=== PATIENT | female | born 1995 | race Caucasian/White ===

== ENCOUNTER 2019-03-30 15:21 | Emergency (ER) | payer OTHER, SELFPAY ==
[2019-03-30 15:23] VITALS: BP 123/89; PULSE 97; RESP 16; TEMP 36.8; O2SAT 98; BMI 22.4
--- NOTE | 2019-03-30 15:51 | ED.VISSUMM ---
- ER Visit Summary Date of Service: 03/30/19 Chief Complaint: Depressed and suicidal History of Present Illness: The patient is a 24 F 3 of depression and anxiety. Patient currently is not seeing any counselors or psychiatrists and is not currently on medication for it. States that for the last several weeks she is been more more depressed. Thinks she just is not as good as it is around her. She feels inferior. Today got to the point that she tried to choke herself with her paul chain. No prior history. She says is a small child she is to hit her head against the wall hoping to split her head open. She states she is never been institutionalized. She was a foster child and has been adopted. 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 She was found today by 1 of those girls after the fact. Physical Examination: Young female vital signs are stable afebrile. He is awake and alert. I do not smell any alcohol. No signs of toxidrome. She is very tearful and emotional. She is cooperative. HEENT exam unremarkable. Neck there is some superficial abrasions to her neck. Trachea is midline. No subcu air. No significant tenderness. Lungs clear to auscultation. Heart regular rhythm no murmur. Chest were nontender. Abdomen soft nontender. Patient is moving all 4 extremities. There are no lacerations or signs of trauma. No track jiménez. Neurologically she is awake and alert with no focal motor deficits. Skin is unremarkable. As is her back. Test Results: CBC shows white count 6. Hemoglobin 11. Chemistries normal normal creatinine gap. Serum test negative. Alcohol level normal. And tox screen pending. Emergency Department Course and Treatment: ED mental health evaluation. warehouse worker is already talking to the patient and will speak to her mother also. Her adopted mother is present in the emergency department. Treatment Plan: Patient became very anxious and tearful in the emergency department. She had to be treated with [place]. software engineer web services spoke to her adopted mother and she is very concerned about her and would like to see her admitted to psychiatric facility. Disposition: [place] to psychiatric facility Impression: Acute on chronic anxiety and depression Suicide attempt This note was generated with [email or web address] dictation software. It may contain incorrect words, spelling, and punctuation that were not noted in review of the chart prior to signing ED Disposition - Plan for ED Patient: Referrals: Santo Thomas MD [Primary Care Provider] -
[2019-03-30 16:11] LABS: Absolute Lymphocyte Count 1.53 X10^3/uL (0.83-4.51); Basophil# 0.03 X10^3/uL; Basophil% 0.5 % (0-1); Eosinophil# 0.07 X10^3/uL; Eosinophils% 1.2 % (0-5); Hematocrit 34.2 % (37-47); Lymphocyte # 1.53 X10^3/ul (4.0); Lymphocyte % 25.6 % (19-41); Mean Corp Hgb Conc 32.2 g/dL (32-36); Mean Corpuscular Hgb 26.8 pg (27.0-32.0); Mean Corpuscular Volume 83.4 fL (81-99); Mean Platelet Vol. 10.9 fl (6.2-12.0); Monocyte# 0.37 X10^3/uL; Monocyte% 6.2 % (0-10); NRBC Flagged by Analyzer 0 % (0-5); Neutrophil # 3.97 X10^3/uL (2.7-7.7); Neutrophil % 66.3 % (47-70); Platelet Count 180 K/mm3 (150-450); RBC Distribution Width CV 13.1 % (11.6-14.6); RBC Distribution Width SD 39.4 fl (35.1-43.9)
[2019-03-30 16:16] LABS: Internal QC Validated? YES +Cl - CLEAR BKGD; Pregnancy, Serum, hCG Quali. NEGATIVE Negative
[2019-03-30 16:22] VITALS: RESP 28
[2019-03-30 16:25] LABS: BUN 19 mg/dL (7-18); Creatinine, Serum 0.89 mg/dL (0.55-1.02); Estimated Creatinine Clearance 89.22 ml/min; Glucose 82 mg/dL (74-106)
[2019-03-30 16:26] LABS: Anion Gap 9 (5-15); BUN/Creat Ratio 21.4 RATIO (10-20); Calcium,Total 8.7 mg/dL (8.5-10.1); Chloride 107 mmol/L (98-107); EST Glomerular Filtration Rate 85 mL/min (>60); Est Glom Filt Rate - Afr Amer 102 mL/min (>60); Potassium 3.6 mmol/L (3.5-5.1); Sodium Level 142 mmol/L (136-145)
[2019-03-30 16:27] LABS: Alcohol, Blood (Medical)-Serum < 3.0 mg/dL
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
[2019-03-30] MEDS: Ziprasidone IM 20 MG/ML VIAL IM (16:42)
--- NOTE | 2019-03-30 16:58 | CM.ED ---
SOCIAL WORK CALL TO [facility]. INFORMED NO BEDS AVAILABLE THIS DAY. CALL TO [facility]. SEAM STAYER REPORTS DOES HAVE BED. WILL REVIEW REFERRAL AND GET BACK TO THIS WORKER. REFERRAL FAXED. MARY BAILON, CRIMINAL JUSTICE INSTRUCTOR, AIRCRAFT INSPECTOR.
[2019-03-30 17:49] VITALS: RESP 14
[2019-03-30 17:51] LABS: Amphetamine Urine VISTA NEGATIVE (<1000 ng/mL); Barbiturate Urine VISTA NEGATIVE (< 200 ng/mL); Benzodiazepine Urine VISTA NEGATIVE (< 200 ng/mL); Cocaine Urine VISTA NEGATIVE (< 300 ng/mL); Ecstacy Urine VISTA NEGATIVE (< 500 ng/mL); Methadone Urine VISTA NEGATIVE (< 300 ng/mL); PCP Urine VISTA NEGATIVE (< 25 ng/mL); THC Urine VISTA POSITIVE (< 50 ng/mL); Vista UDS pH Range 6
--- NOTE | 2019-03-30 18:25 | CM.ED ---
Addendum entered by Argenis Bailon 03/30/19 18:36: PATIENT UPDATED ON ACCEPTANCE. MOTHER PRESENT IN ROOM. Original Note: SOCIAL WORK RECEIVED CALL FROM JAMESON WITH [facility]. PATIENT ACCEPTED. ACCEPTING PHYSICIAN: DR. BAL. PATIENT WILL GO TO THE [address] UNIT. NURSE TO CALL REPORT TO [phone]. ARGENIS BAILON, BODY CLEANER, REFRIGERATOR TESTER.
[2019-03-30 19:00] VITALS: BP 104/65; PULSE 66; RESP 16; O2SAT 100
[2019-03-30 19:12] VITALS: BP 104/65; PULSE 66; RESP 16; TEMP 36.8; O2SAT 100
== END 2019-03-30 19:47 ==
PROVIDERS: Emergency Provider Emergency Medicine; Family Provider Family Medicine; PCP Family Medicine
DX: F32.9 Major depressive disorder, single episode, unspecified (principal); F41.9 Anxiety disorder, unspecified; T14.91XA Suicide attempt, initial encounter; X83.8XXA Intentional self-harm by other specified means, initial encounter; Y93.89 Activity, other specified
CPT/HCPCS: 80048; 80307; 80320; 84703; 85025; 96372; 99284; G0480; J3486

== ENCOUNTER 2020-03-02 13:03 | Emergency (ER) | payer OTHER, SELFPAY ==
[2020-03-02 13:04] VITALS: BP 121/53; PULSE 93; RESP 16; TEMP 36.6; O2SAT 98; BMI 21.6
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
[2020-03-02] MEDS: Acetaminophen 500 MG Tablet 1000 MG PO (13:29)
[2020-03-02] MEDS: Ondansetron ODT 4 MG Tablet PO (13:29)
== END 2020-03-02 13:49 | disposition home or self-care (01) ==
PROVIDERS: Emergency Provider Emergency Medicine; PCP Family Medicine
DX: S06.0X9A Concussion with loss of consciousness of unspecified duration, initial encounter (principal); Y04.2XXA Assault by strike against or bumped into by another person, initial encounter
CPT/HCPCS: 99283

== ENCOUNTER 2020-08-17 20:19 | Emergency (ER) | payer OTHER, SELFPAY ==
[2020-08-17 20:20] VITALS: BP 115/71; PULSE 117; RESP 18; TEMP 36.1; O2SAT 98; BMI 23.3
--- NOTE | 2020-08-17 20:41 | CT_ITS ---
STUDY: CT ABDOMEN AND PELVIS WITHOUT CONTRAST REASON FOR EXAM: Female, 25 years old. Left lower abdomen pain, nausea/vomiting. No prior surgery. RADIATION DOSAGE (If Supplied By Facility): CTDIvol = ( 6.24 ) mGy, DLP = ( 316.36 ) mGycm TECHNIQUE: Transaxial images were obtained from the dome of the diaphragm to the symphysis pubis without oral contrast, and without intravenous contrast. Sagittal and coronal images were reconstructed. Individualized dose optimization techniques were used for this CT. COMPARISON: None. FINDINGS: The visualized lung bases are unremarkable. The visualized portions of the heart are within normal limits. Normal liver. Normal gallbladder and extrahepatic biliary system. Normal spleen. Normal pancreas. Normal bilateral adrenal glands. Normal right kidney. Normal left kidney. No definite renal or ureteral stones are seen. There is no hydronephrosis on either side. Evaluation of the GI tract is limited by absence of oral contrast. Cannot exclude stomach wall thickening. No dilated loops of bowel or evidence for obstruction. Cannot exclude segmental thickening of the styles of the small or large bowel. Cannot exclude enteritis or colitis. Moderate diffuse fecal retention. Appendix within normal limits. Normal abdominal aorta. Normal inferior vena cava. Normal retroperitoneum. Normal urinary bladder. Normal visualized uterus. Normal abdominal wall. Normal osseous structures. CT/Abdomen/Pelvis without Cont IMPRESSION: No definite acute or significant abnormality seen. Electronically Signed: Talib Yanes MD at 23:06 EST , Service support ,
[2020-08-17] MEDS: Ondansetron 4 MG/2 ML Vial IV (21:04)
[2020-08-17] MEDS: Morphine 4 MG/ML Syringe IV (21:04)
[2020-08-17] MEDS: 0.9% Normal Saline 1,000 ML 1000 ML IV (21:04)
[2020-08-17 21:22] LABS: Color, Urine Yellow (Yellow); Glucose, Dipstick Normal (Normal); Leukocyte Esterase-Dipstick 500 /ul (Negative); Nitrite-Dipstick Negative (Negative); Occult Blood-Urine Negative /ul (Negative); Protein-Dipstick Negative (Negative); Urine Bilirubin Dipstick Negative (Negative); Urine Clarity Cloudy (Clear); Urine Urobilinogen Normal (Normal)
[2020-08-17 21:34] LABS: Bacteria 2+ /hpf (None Seen); Mucous, Urine 1+ /hpf (<or=2+); Red Blood Cells-Urine 0-5 SEEN /hpf (0-5); Squamous Epithelial Cells - UA 5-10 SEEN /hpf (5-10)
[2020-08-17 21:38] LABS: White Blood Cells 10-25 SEEN /hpf (0-5)
[2020-08-17 21:48] LABS: Ketone-Dipstick 150 mg/dl (Negative)
[2020-08-17 22:02] LABS: Absolute Lymphocyte Count 0.24 X10^3/uL (0.83-4.51); Absolute Neutrophil Count 8.1 X10^3/uL (2.0-7.7); Basophil# 0.01 X10^3/uL; Basophil% 0.1 % (0-1); Eosinophil# 0.03 X10^3/uL; Eosinophils% 0.3 % (0-5); Hematocrit 35.5 % (37-47); Hemoglobin 11.6 g/dL (12.0-15.0); Lymphocyte # 0.24 X10^3/ul (4.0); Lymphocyte % 2.7 % (19-41); Mean Corp Hgb Conc 32.7 g/dL (32-36); Mean Corpuscular Hgb 26.6 pg (27.0-32.0); Mean Corpuscular Volume 81.4 fL (81-99); Mean Platelet Vol. 10.8 fl (6.2-12.0); Monocyte# 0.35 X10^3/uL; NRBC Flagged by Analyzer 0 % (0-5); Neutrophil # 8.08 X10^3/uL (2.7-7.7); Neutrophil % 92.7 % (47-70); POSITIVE DIFFERENTIAL YES; Platelet Count 167 K/mm3 (150-450); RBC Distribution Width SD 41.4 fl (35.1-43.9); Red Blood Count 4.36 M/mm3 (4.2-5.4); White Blood Count 8.7 K/mm3 (4.4-11.0)
[2020-08-17] MEDS: Ceftriaxone 1 GM/50 ML BAG IV (22:04)
[2020-08-17 22:30] LABS: ALB/GLOB Ratio 1.3 RATIO (0.9-2.4); AST(SGOT) 13 U/L (15-37); Alanine Aminotransfer ALT/SGPT 18 U/L (13-56); Albumin, Serum 3.7 g/dL (3.2-5.0); Alkaline Phosphatase 52 U/L (45-117); Anion Gap 7 (5-15); BUN 20 mg/dL (7-18); BUN/Creat Ratio 27.7 RATIO (10-20); Calcium,Total 7.6 mg/dL (8.5-10.1); Chloride 108 mmol/L (98-107); Creatinine, Serum 0.72 mg/dL (0.55-1.02); EST Glomerular Filtration Rate 106 mL/min (>60); Est Glom Filt Rate - Afr Amer 128 mL/min (>60); Estimated Creatinine Clearance 109.35 ml/min; Globulin 2.9 g/dL (2.2-4.2); Glucose 82 mg/dL (74-106); Lipase 104 U/L (73-393); Potassium 3.8 mmol/L (3.5-5.1); Protein, Total 6.6 g/dL (6.4-8.2); Sodium Level 137 mmol/L (136-145)
[2020-08-17 22:31] LABS: Differential Indicated SCAN CRITERIA MET
[2020-08-17 22:34] LABS: Internal QC Validated? YES +Cl - CLEAR BKGD; Pregnancy, Serum, hCG Quali. NEGATIVE Negative
[2020-08-17 22:40] LABS: Platelet Estimate ADEQUATE (ADEQ); Red Cell Morphology NORM C+C NORMAL (NORM C&C)
--- NOTE | 2020-08-17 23:27 | ED.VISSUMM ---
- ER Visit Summary Date of Service: 08/17/20 Chief Complaint: Abdominal pain History of Present Illness: The patient is a [address] Green. She reports she has left-sided abdominal pain that began today. It came on suddenly. Says sharp pain is 7 out of 10 in severity currently and at worst. Is worsened by laying down and relieved by the position. Reports she has been nauseated and vomited 7 times. No blood in her emesis. No diarrhea. Her last bowel was yesterday. Typically she goes twice a day. No blood in her stools or black tarry stools. Patient denies any dysuria or frequency. She does report that she has had a heavy vaginal discharge for approximately 1 week. She states that she did have unprotected intercourse and may be . She is a who sees Dr. Liz Her. Physical Examination: Vitals: Stable. Afebrile. General: Well-nourished and well-developed. Head: Normocephalic atraumatic. Neck: Supple, no lymphadenopathy. No JVD. Nontender. Cardiovascular: Regular rate and rhythm. No murmurs. Respiratory: No respiratory distress. Clear to auscultation bilaterally. Abdominal: Soft, mild tenderness palpation of the left upper quadrant and moderate tenderness outpatient in the left lower quadrant, nondistended, normal bowel sounds. No guarding, rebound, or peritoneal signs. Back: Nontender. Extremities: Nontender, no edema. Skin: Normal color, no rash. Neurologic: Alert and oriented ?3. Cranial nerves II through XII are intact. Normal strength and sensation. Psych: Normal affect. Test Results: CBC shows a hemoglobin of 11.6, hematocrit of 35.5, 7 neutrophils 93, lymphocytes 3. Chem-7 is more for chloride of 108, BUN of 20, calcium 7.6. LFTs are marked for an AST of 13. Lipase is normal. UA shows 10-25 white blood cells, but 5-10 epithelial cells. There is 2+ bacteria. test is negative. Urine for gonorrhea and chlamydia is pending. Clinical Impression(s) from Imaging Studies Abdomen/Pelvis CT 08/17/20 20:41 IMPRESSION: No definite acute or significant abnormality seen. Electronically Signed: Talib Yanes MD at 23:06 EST , Service support , Emergency Department Course and Treatment: Patient was given a liter bolus of normal saline. She was given Rocephin, morphine, and Zofran IV. Her urine was sent for culture. Due to the risk of STD exposure patient was also given Zithromax p.o. Treatment Plan: Patient will be discharged instructions to follow-up with her primary care physician in 1 to 2 days if not improving. She is instructed to follow-up with her film developing machine operator within the next week for another exam. She will be discharged with Zofran and Keflex for her urine. Instructed use Tylenol and/or ibuprofen for pain otherwise. Return to the emergency department for any worsening symptoms. Disposition: To home in improved and stable condition. Impression: 1. Abdominal pain, uncertain cause. This note was generated with [employer] dictation software. It may contain incorrect words, spelling, and punctuation that were not noted in review of the chart prior to signing ED Disposition - Plan for ED Patient: Instructions: ED Abdominal Pain Unkn Cause Fem Prescriptions: Cephalexin [Keflex] 500 mg PO Q12 #14 cap Prescription Printed Ondansetron [Zofran Odt] 4 mg PO Q8H PRN PRN #10 tab PRN Reason: Nausea Prescription Printed Referrals: Santo Thomas MD [Primary Care Provider] - 1-2 Days if not improving Josefina Delarosa MD [STAFF PHYSICIAN] - 1 Week
[2020-08-17] MEDS: Azithromycin 250 MG Tablet 1000 MG PO (23:43)
[2020-08-17 23:45] VITALS: BP 93/59; PULSE 111; RESP 18; O2SAT 100
[2020-08-18 01:54] LABS: Chlamydia Trachomatis by PCR Negative (Negative); Neisserai gonorrhoeae by PCR Negative (Negative); Probe Check PASS; Sample Adequacy Control PASS; Specimen Processing Control PASS
== END 2020-08-17 23:46 | disposition home or self-care (01) ==
PROVIDERS: Emergency Provider Emergency Medicine; PCP Family Medicine
DX: R10.9 Unspecified abdominal pain (principal)
CPT/HCPCS: 74176; 80053; 81001; 83690; 84703; 85025; 87086; 87088; 87491; 87591; 96365; 96375; 99284; J7030; A4216; J2405

== ENCOUNTER 2021-01-09 09:32 | Emergency (ER) | payer OTHER, SELFPAY ==
[2021-01-09 09:33] VITALS: BP 105/73; PULSE 97; RESP 16; TEMP 36.6; O2SAT 97; BMI 22.6
--- NOTE | 2021-01-09 09:47 | EDS_ITS ---
HPI History of Present Illness Chief Complaint: Nausea/Vomiting Narrative Narrative: [address]-year-old patient Dr. Lloyd Her who is a G0, P0. She reports that she has vomiting and diarrhea that began approximately 6 hours ago. She is vomited 10 times. No blood or emesis. She symptoms of the diarrhea. No blood in her stools or black tarry stools. Reports that she has crampy diffuse abdominal pain that began after vomiting. And 6 out of 10 at worst and 2 out of 10 currently. Is worsened by pushing on it and vomiting. Is relieved by nothing. Patient denies any dysuria or frequency. She reports her last menstrual period was approximately 1 week ago. However, she reports she began spotting again 2 days ago. She denied vaginal discharge. Patient denies sick contacts. Has not been camping out of the country. No possible bad food exposure. Does not drink well water. No recent antibiotic use. PFSH PFSH Home Medications cephalexin 500 mg PO Q12 #14 cap 08/17/20 [Rx Last Taken Unknown] ondansetron 4 mg PO Q8H PRN PRN #10 tab 08/17/20 [Rx Last Taken Unknown] ondansetron 4 mg PO Q8H PRN #10 tab 01/09/21 [Rx Last Taken Unknown] Allergy/AdvReac Type Severity Reaction Status Date / Time fish derived Allergy Swelling Verified 01/09/21 09:36 Social History Smoking Status: Never smoker ROS ROS ED Constitutional Constitutional ED: Denies chills, fever(s) or sweats Eyes Eyes: Denies change in vision ENT ENT ED: Denies sore throat Cardiovascular Cardiovascular: Denies chest pain Respiratory/Chest Respiratory/Chest: Denies cough, dyspnea or dyspnea on exertion Gastrointestinal Gastrointestinal: Reports abdominal pain, diarrhea, nausea and vomiting; Denies melena Genitourinary Genitourinary ED: Denies dysuria or urinary frequency Musculoskeletal Musculoskeletal: Denies myalgias Integumentary Denies rash Neurologic Neurologic: Denies headache(s), paresthesias or weakness EXAM Physical Exam Const Vital Signs: 01/09/21 09:33 01/09/21 09:58 01/09/21 10:58 Temperature 98 F 98 F Temperature Source Temporal Temporal Pulse Rate 97 97 Respiratory Rate 16 16 17 Blood Pressure 105/73 105/73 Blood Pressure Mean 83 83 Pulse Ox 97 97 Oxygen Delivery Method Room Air Room Air Positive well nourished and well developed General Appearance ED: well developed HEENT Reports normocephalic and head/scalp atraumatic Eyes PERRL Neck no lymphadenopathy, supple and no JVD General: Negative for tenderness Resp normal respiratory effort and clear to auscultation bilaterally Cardio regular rate, regular rhythm and no murmurs GI non-distended GI Narrative: To palpation. No localized tenderness. No guarding, rebound, or peritoneal signs. Auscultation: normoactive bowel sounds Palpation: soft and tender Back/Spine Back/Spine Narrative: Nontender. Extremity General Extremety ED: Negative for edema or tenderness General Extremity: Negative for edema Neuro oriented x3, CN's II-XII intact bilaterally and no sensory deficits noted Sensorium / Orientation: alert Motor Exam: strength 5/5 throughout Psych mental status grossly normal Skin no rashes or lesions noted MDM MDM Lab Data Labs: Laboratory Results - last 24 hr 01/09/21 01/09/21 01/09/21 09:53 09:53 09:53 WBC 7.8 RBC 4.84 Hgb 12.6 Hct 39.1 MCV 80.8 L MCH 26.0 L MCHC 32.2 RDW Std Deviation 42.0 RDW Coeff of Dru 14.3 Plt Count 152 MPV 10.7 Immature Gran % (Auto) 0.400 Neut % (Auto) 87.8 H Lymph % (Auto) 4.4 L [place] % (Auto) 4.8 Eos % (Auto) 2.3 Baso % (Auto) 0.3 Absolute Neuts (auto) 6.8 Absolute Lymphs (auto) 0.34 L Nucleated RBC % 0 Sodium 137 Potassium 3.8 Chloride 106 Carbon Dioxide 27.0 Anion Gap 4 L BUN 16 Creatinine 0.86 Estim Creat Clear Calc 95.24 Est GFR (MDRD) Af Amer 105 Est GFR (MDRD) Non-Af 87 BUN/Creatinine Ratio 18.6 Glucose 102 Calcium 8.5 Total Bilirubin 0.70 AST 10 L ALT 15 Alkaline Phosphatase 50 Total Protein 7.1 Albumin 4.0 Globulin 3.1 Albumin/Globulin Ratio 1.3 Serum , Qual NEGATIVE Treatment and Re-Evaluation Comments:: Emergency department course: Patient had an IV placed. She was given a liter normal saline. He was given Zofran as Toradol IV. She had no further vomiting or diarrhea while here. Treatment plan: Patient will be discharged with Zofran. Instructed to follow-up with her primary care physician which is not improving. Return to the emergency department for any worsening symptoms. Disposition: To home in improved and stable condition. This note was generated with [employer] dictation software. It may contain incorrect words, spelling, and punctuation that were not noted in review of the chart prior to signing. Discharge Plan Triage Chief Complaint: Nausea/Vomiting ED Provider: Manjit Fairbanks Dx/Rx/DC Orders Clinical Impression: Vomiting and diarrhea Instructions: ED Vomiting and Diarrhea ... Prescriptions: New ondansetron 4 mg tablet,disintegrating 4 mg PO Q8H PRN (Reason: nausea and vomiting) Qty: 10 RF: 0 No Action cephalexin 500 MG capsule 500 mg PO Q12 Qty: 14 RF: 0 ondansetron 4 MG tablet 4 mg PO Q8H PRN PRN (Reason: Nausea) Qty: 10 RF: 0 Primary Care Provider: Santo Thomas Referrals: Santo Thomas MD [Primary Care Provider] - 1-2 Days if not improving Disposition Disposition: Home, self care Discharge Date/Time: 01/09/21 11:00
[2021-01-09] MEDS: Ketorolac 15 MG/ML Vial IV (09:55)
[2021-01-09] MEDS: 0.9% Normal Saline 1,000 ML 1000 ML IV (09:55)
[2021-01-09] MEDS: Ondansetron 4 MG/2 ML Vial IV (09:55)
[2021-01-09 09:58] VITALS: BP 105/73; PULSE 97; RESP 16; TEMP 36.6; O2SAT 97
[2021-01-09 10:07] LABS: Absolute Lymphocyte Count 0.34 X10^3/uL (0.83-4.51); Absolute Neutrophil Count 6.8 X10^3/uL (2.0-7.7); Basophil# 0.02 X10^3/uL; Basophil% 0.3 % (0-1); Eosinophil# 0.18 X10^3/uL; Eosinophils% 2.3 % (0-5); Hematocrit 39.1 % (37-47); Hemoglobin 12.6 g/dL (12.0-15.0); Lymphocyte # 0.34 X10^3/ul (0.83-4.51); Lymphocyte % 4.4 % (19-41); Mean Corp Hgb Conc 32.2 g/dL (32-36); Mean Corpuscular Volume 80.8 fL (81-99); Mean Platelet Vol. 10.7 fl (6.2-12.0); Monocyte# 0.37 X10^3/uL; Monocyte% 4.8 % (0-10); NRBC Flagged by Analyzer 0 % (0-5); Neutrophil # 6.84 X10^3/uL (2.7-7.7); Neutrophil % 87.8 % (47-70); POSITIVE DIFFERENTIAL YES; Platelet Count 152 K/mm3 (150-450); RBC Distribution Width CV 14.3 % (11.6-14.6); Red Blood Count 4.84 M/mm3 (4.2-5.4); White Blood Count 7.8 K/mm3 (4.4-11.0)
[2021-01-09 10:08] LABS: Differential Indicated SCAN CRITERIA MET
[2021-01-09 10:24] LABS: ALB/GLOB Ratio 1.3 RATIO (0.9-2.4); AST(SGOT) 10 U/L (15-37); Alanine Aminotransfer ALT/SGPT 15 U/L (13-56); Alkaline Phosphatase 50 U/L (45-117); Anion Gap 4 (5-15); BUN 16 mg/dL (7-18); BUN/Creat Ratio 18.6 RATIO (10-20); Calcium,Total 8.5 mg/dL (8.5-10.1); Chloride 106 mmol/L (98-107); Creatinine, Serum 0.86 mg/dL (0.55-1.02); EST Glomerular Filtration Rate 87 mL/min (>60); Est Glom Filt Rate - Afr Amer 105 mL/min (>60); Estimated Creatinine Clearance 95.24 ml/min; Globulin 3.1 g/dL (2.2-4.2); Glucose 102 mg/dL (74-106); Potassium 3.8 mmol/L (3.5-5.1); Protein, Total 7.1 g/dL (6.4-8.2); Sodium Level 137 mmol/L (136-145)
[2021-01-09 10:32] LABS: Internal QC Validated? YES +Cl - CLEAR BKGD; Pregnancy, Serum, hCG Quali. NEGATIVE Negative
[2021-01-09 10:58] VITALS: RESP 17
== END 2021-01-09 11:00 | disposition home or self-care (01) ==
PROVIDERS: Emergency Provider Emergency Medicine; PCP Family Medicine
DX: R11.2 Nausea with vomiting, unspecified (principal); R19.7 Diarrhea, unspecified
CPT/HCPCS: 80053; 84703; 85025; 96374; 96375; 99283; J7030; A4216; J2405

== ENCOUNTER 2021-03-27 23:15 | Emergency (ER) | payer OTHER, SELFPAY ==
[2021-03-27 23:15] VITALS: BP 124/74; PULSE 76; RESP 18; TEMP 36.3; O2SAT 100; BMI 24.2
--- NOTE | 2021-03-27 23:43 | EDS_ITS ---
HPI History of Present Illness Chief Complaint: Nausea/Vomiting Informant: patient Narrative Narrative: Patient presents with nausea and vomiting that started somewhere in the mid of today. She states it started with a headache on the right side. The headache was slow onset. Is not the worst she has ever had. Is not thunderclap. I noticed that she had been here for multiple episodes of vomiting over the years. When I asked her about this she states she gets these episodes about twice a month. They are always preceded by headache. The headache is normally on the right side of her head. She then gets nausea vomiting. Sometimes it goes away within hours if she lays down but occasionally she does come in. She has never seen anyone about these other than the emergency department. She has never been diagnosed with migraines. She is adopted and do es not know if she has a family history of migraines. I then asked her about visual changes. She states that many times she does get some flashing lights or visual scotoma prior to the headache. She had mild versions of that this time. She has no neurologic symptoms. She has no recent trauma. No fevers or chills. Despite nausea and vomiting she has no diarrhea and no abdominal pain or cramp ing. Last menstrual period is normal timing and now. She does not know if the headaches match her menstrual cycle. Nothing consistently makes the symptoms better or worse. She occasionally smokes marijuana but it has been weeks. No other drugs. No cigarettes. No alcohol. PFSH PFSH Home Medications sumatriptan succinate 50 mg PO Q2H PRN #7 tab MDD 2 tablets 03/28/21 [Rx Last Taken Unknown] Allergy/AdvReac Type Severity Reaction Status Date / Time fish derived Allergy Swelling Verified 03/27/21 23:17 Social History Smoking Status: Never smoker ROS ROS ED Constitutional Constitutional ED: Denies fever(s) or sweats Eyes Eyes: Reports other Details: Had mild visual scotoma prior to the headache. None now. ; Denies blurry vision, change in vision or diplopia ENT ENT ED: Denies rhinorrhea Cardiovascular Cardiovascular: Denies chest pain or palpitations Respiratory/Chest Respiratory/Chest: Denies cough, dyspnea or sputum Gastrointestinal Gastrointestinal: Reports nausea and vomiting; Denies abdominal pain, constipation or diarrhea Genitourinary Genitourinary ED: Reports other Details: Last menstrual period is now in normal timing. ; Denies dysuria or hematuria Musculoskeletal Musculoskeletal: Denies neck pain Integumentary Denies rash Neurologic Neurologic: Reports headache(s); Denies paresthesias or weakness Psychiatric Psychiatric: Denies anxiety or depression Endocrine Endocrinology: Denies polydipsia or polyuria Allergic/Immunologic Allergic/Immunologic ED: Denies mouth swelling or urticaria EXAM Physical Exam Const Vital Signs: 03/27/21 23:15 Temperature 97.4 F L Temperature Source Temporal Pulse Rate 76 Respiratory Rate 18 Blood Pressure 124/74 H Blood Pressure Mean 90 Pulse Ox 100 Positive well nourished and well developed General Appearance ED: well developed HEENT Reports moist mucous membranes Negative for trauma or tenderness Eyes PERRL and EOMs intact bilaterally Eyes Narrative: Patient really does not have any notable General Eye ED: Negative for pale conjunctiva or scleral icterus Neck no lymphadenopathy, supple and no JVD Resp normal respiratory effort and clear to auscultation bilaterally Auscultation: Negative for wheezes Cardio regular rate and regular rhythm GI normal to inspection, nondistended, normoactive bowel sounds, non-tender and non-distended Palpation: soft Back/Spine no CVA tenderness Extremity General Extremety ED: Negative for edema or tenderness General Extremity: Negative for edema Neuro oriented x3 Sensorium / Orientation: alert Psych mental status grossly normal Skin no rashes or lesions noted MDM MDM MDM Narrative Medical decision making narrative: Patient is rechecked. She looks comfortable. She has no photophobia. No nausea. No further vomiting. Headaches gone. She feels much better. I will write her for a few sumatriptan. We explained that she should take this with initial onset of visual scotoma or headache. She will follow up with her private physician. We discussed returning with worsening symptoms fevers, neurologic symptoms or other concerns. Discharge Plan Triage Chief Complaint: Nausea/Vomiting ED Provider: Jaime Self Dx/Rx/DC Orders Clinical Impression: Migraine, Nausea & vomiting Instructions: ED, Migraine (Classical) Prescriptions: New sumatriptan succinate 50 mg tablet 50 mg PO Q2H MDD 2 tablets PRN (Reason: migraine headache) Qty: 7 RF: 0 Primary Care Provider: Santo Thomas Referrals: Santo Thomas MD [Primary Care Provider] - As soon as possible Disposition Disposition: Home, Self Care
[2021-03-28] MEDS: 0.9% Normal Saline 1,000 ML 999 ML IV (00:05)
[2021-03-28] MEDS: proCHLORPERazine 10 MG/2 ML Vial IV (00:05)
[2021-03-28] MEDS: DiphenhydrAMINE 50 MG/ML Syringe IV (00:07)
== END 2021-03-28 01:32 | disposition home or self-care (01) ==
LOC: ED 03-28 01:26
PROVIDERS: Emergency Provider Emergency Medicine; PCP Family Medicine
DX: G43.909 Migraine, unspecified, not intractable, without status migrainosus (principal); R11.2 Nausea with vomiting, unspecified
CPT/HCPCS: 96374; 96375; 99283; J7030; A4216

== ENCOUNTER → 2021-12-24 | Outpatient (CLI) | payer OTHER, SELFPAY ==
[2021-12-30 16:40] LABS: HPV Reflexed? NOT INDICATED
== END | disposition home or self-care (01) ==
LOC: LABSPEC 15:20
PROVIDERS: PCP Family Medicine; Referring Provider Registered Nurse; Visit Provider Registered Nurse
DX: Z12.4 Encounter for screening for malignant neoplasm of cervix (principal)
CPT/HCPCS: 87491; 87591; 88175; G0145

== ENCOUNTER → 2022-02-27 | Outpatient (CLI) | payer OTHER, SELFPAY | END | disposition home or self-care (01) | LOC: LABSPEC 15:04 | PROVIDERS: PCP Family Medicine; Visit Provider Obstetrics & Gynecology | DX: R30.0 Dysuria (principal) | CPT/HCPCS: 87077; 87086; 87088 ==

== ENCOUNTER → 2022-05-21 | Outpatient (CLI) | payer OTHER, SELFPAY | END | disposition home or self-care (01) | PROVIDERS: PCP Family Medicine; Visit Provider Family Medicine | DX: R30.0 Dysuria (principal) | CPT/HCPCS: 87086; 87088 ==

== ENCOUNTER → 2022-05-22 | Outpatient (CLI) | payer OTHER, SELFPAY ==
[2022-05-22 17:30] LABS: hCG Titer Quant., Serum < 1 mIU/mL (1-3)
== END | disposition home or self-care (01) ==
LOC: WOBLAB 10:57
PROVIDERS: PCP Family Medicine; Visit Provider Obstetrics & Gynecology
DX: N91.2 Amenorrhea, unspecified (principal)
CPT/HCPCS: 36415; 84702

== ENCOUNTER 2023-03-18 23:27 | Emergency (ER) | payer MEDICAID, SELFPAY ==
[2023-03-18 23:29] VITALS: BP 103/77; PULSE 115; RESP 15; TEMP 36.3; O2SAT 95; BMI 29.0
--- NOTE | 2023-03-19 00:05 | EDS_ITS ---
HPI HPI - Female History of Present Illness Chief Complaint: Female C/O Informant: patient Narrative Narrative: 1 to 2 weeks of vaginal pain and bleeding off-and-on. Saw her PATIENT INTAKE REPRESENTATIVE, prescribed doxycycline which she has been on, saying the symptoms are still there and presenting for reevaluation basically because she is still bleeding and occasionally seeing some tissue that does not make any sense and she is concerned. She is sexually active with her boyfriend, she has no STD history that she knows of, but states her RAPID TRANSIT OPERATOR swabbed her and sent. She states her boyfriend did admit he did not have intercourse but had other sexual contact with another relationship and was potentially exposed to herpes simplex but she has noticed no rashes. [facility] Medical History (Updated 03/19/23 @ 01:[address] Puma Berumen MD) Migraine Home Medications sumatriptan succinate 50 mg tablet 50 mg PO Q2H PRN migraine headache #7 tabs 03/28/21 [Rx Last Taken Unknown] Allergy/AdvReac Type Severity Reaction Status Date / Time fish derived Allergy Swelling Verified 03/18/23 23:35 Surgical History H/O wisdom tooth extraction Social History household members: family Smoking Status: Light Smoker (<10/day) ROS ROS ED Constitutional Constitutional ED: Denies chills or fever(s) Gastrointestinal Gastrointestinal: Reports abdominal pain; Denies nausea or vomiting Genitourinary Genitourinary ED: Reports as per HPI; Denies dysuria, hematuria or urinary frequency Integumentary Denies abscess or rash EXAM Physical Exam Const Vital Signs: 03/18/23 23:29 Temperature 97.3 F L Temperature Source Temporal Pulse Rate 115 H Respiratory Rate 15 Blood Pressure 103/77 Blood Pressure Mean 85 Pulse Ox 95 Oxygen Delivery Method Room Air Positive well nourished and well developed General Appearance ED: well developed and NAD Eyes PERRL and EOMs intact bilaterally Neck supple Resp normal respiratory effort Effort and Inspection: able to speak in complete sentences GI normal to inspection, nondistended, normoactive bowel sounds and soft to palpation GI Narrative: Very mild suprapubic tenderness only no guarding or rebound. Narrative: External genitalia normal. On speculum exam, some mild tenderness in the vaginal canal with exam but not severe. Cervix is normal-appearing. There is a brown homogenous discharge in the canal and by the cervix, the cervix looks no rmal does not appear to be friable there is no blood or bleeding or any obvious source of bleeding, there does appear to be a drop of discharge at the os. Extremity normal to inspection and full ROM Neuro oriented x3, CN's II-XII intact bilaterally, no sensory deficits noted and gait normal Motor Exam: strength 5/5 throughout Psych mental status grossly normal Skin no rashes or lesions noted MDM MDM MDM Narrative Medical decision making narrative: Very well-appearing female, with vaginal discharge, PID is in the differential diagnosis, as it is bacterial vaginosis, gonorrhea, chlamydia cervicitis although that she does not appear to have cervicitis now. Since she was just at the RAPID TRANSIT OPERATOR, I deferred bimanual exam since she is well-appearing and I am out of low suspicion for tubo-ovarian abscess and she is really not having a whole lot of abdominal pain, and discussed with Dr. Keny Burk who was on-call for [place]. He is aware of this patient, states that they were planning on covering her for PID in the office with the Doxy she is currently on as well as a dose of IM Rocephin but they were unable to get it, so they sent testing. The patient showed me the results of her outpatient testing. Negative for gonorrhea and chlamydia, she has a score of 0 on her bacterial vaginosis KATERIN, Dr. Burk confirms that this is very sensitive for ruling that out. She was negative for trichomoniasis. He suggest given her the dose of Rocephin here, she will be given 500 mg IM and then discharged home. She will follow-up closely as an outpatient. No reason to admit her at this time. She is comfortable with that plan. Discharge Plan Triage Chief Complaint: Female C/O ED Provider: Puma Berumen Dx/Rx/DC Orders Clinical Impression: Bloody vaginal discharge, Pelvic pain in female Instructions: ED Pelvic Inflammatory Disease Prescriptions: No Action sumatriptan succinate 50 mg tablet 50 mg PO Q2H MDD 2 tablets PRN (Reason: migraine headache) Qty: 7 0RF Rx Instructions: do not exceed 4 doses per 24 hrs Primary Care Provider: Santo Thomas Referrals: Prachi Burk DO [Med Staff - Active Staff] - As soon as possible Santo Thomas MD [Primary Care Provider] - Disposition Disposition: Home, Self Care
[2023-03-19] MEDS: Ceftriaxone 500 MG Vial IM (01:26)
== END 2023-03-19 01:59 | disposition home or self-care (01) ==
PROVIDERS: Emergency Provider Emergency Medicine; PCP Family Medicine; Visit Provider Emergency Medicine
DX: N93.9 Abnormal uterine and vaginal bleeding, unspecified (principal); F17.200 Nicotine dependence, unspecified, uncomplicated; R10.2 Pelvic and perineal pain; G43.909 Migraine, unspecified, not intractable, without status migrainosus
CPT/HCPCS: 96372; 99282

== ENCOUNTER 2023-06-11 22:12 | Emergency (ER) | payer MEDICAID, SELFPAY ==
[2023-06-11 22:13] VITALS: BP 131/89; PULSE 113; RESP 16; TEMP 36.2; O2SAT 98; BMI 28.8
--- NOTE | 2023-06-11 22:27 | CT_ITS ---
EXAM: CT HEAD WITHOUT INTRAVENOUS CONTRAST CLINICAL INDICATION: headache TECHNIQUE: Multiple axial images were obtained of the head without intravenous contrast. This CT exam was performed using one or more of the following dose reduction techniques: automated exposure control, adjustment of the mA and/or kV according to patient size, and/or use of iterative reconstruction technique. RADIATION DOSE: CTDIvol = 44.99 mGy, DLP = 762.36 mGy-cm COMPARISON: No relevant prior studies available. FINDINGS: BRAIN AND EXTRA-AXIAL SPACES: Unremarkable. No intra- or extra-axial hemorrhage. No evidence of acute infarct. No intracranial mass or mass effect. There is preservation of the shea/white matter interface. Posterior fossa structures are unremarkable. Ventricles are appropriate for age. No hydrocephalus. Basal cisterns are patent. BONES/JOINTS: Unremarkable. No discrete lytic or blastic abnormalities. SINUSES: Unremarkable as visualized. Clear. MASTOID AIR CELLS: Unremarkable. Clear. ORBITS: Visualized globes, extraocular muscles, optic nerves and retrobulbar fat appear unremarkable. CT/Brain/Head without Contrast IMPRESSION: Negative head/brain CT without intravenous contrast. Electronically Signed: Fercho Montalvo MD at 23:19 EDT ,
--- NOTE | 2023-06-11 22:32 | EX.ED.DYSGE1 ---
HPI History of Present Illness Chief Complaint: Anxiety Informant: patient Narrative Narrative: Patient presents with anxiety and headache. She states that she is in a bad relationship and has had a lot of problems with anxiety. She does not want to take any anxiety medication but she is currently in counseling. She states she presents tonight because of a headache. She states that she was told about 5 years ago that she had a CT scan that showed a small teardrop shaped intracranial bleed. She states this CT scan was obtained while she was being evaluated for psychiatric disorder. She states it was just observed and no surgery was required. She states she was told it occurred because she was under a lot of emotional stress and with her increased anxiety and now headache she is concerned. She states that she went to a walk-in clinic at the [facility] just a couple days ago and his CT head was performed that showed some inflammation. I looked in [facility] but cannot find any records of this visit. PFSH PFS Medical History Migraine Home Medications sumatriptan succinate 50 mg tablet 50 mg PO Q2H PRN migraine headache #7 tabs 03/28/21 [Rx Last Taken Unknown] Allergy/AdvReac Type Severity Reaction Status Date / Time fish derived Allergy Swelling Verified 03/18/23 23:35 Surgical History H/O wisdom tooth extraction Social History household members: family Smoking Status: Light Smoker (<10/day) ROS [facility] ED Constitutional Constitutional ED: Denies chills or fever(s) Eyes Eyes: Denies discharge from eye(s) ENT ENT ED: Denies discharge from eye(s), rhinorrhea or sore throat Cardiovascular Cardiovascular: Denies chest pain or palpitations Respiratory/Chest Respiratory/Chest: Denies cough or dyspnea Gastrointestinal Gastrointestinal: Reports nausea and vomiting; Denies abdominal pain or diarrhea Genitourinary Genitourinary ED: Denies dysuria Musculoskeletal Musculoskeletal: Denies back pain or extremity pain Integumentary Denies Abrasions or rash Neurologic Neurologic: Reports headache(s); Denies weakness Psychiatric Psychiatric: Reports anxiety; Denies depression or suicidal ideation Allergic/Immunologic Allergic/Immunologic ED: Denies lip swelling or urticaria EXAM Physical Exam Const Vital Signs: 06/11/23 22:13 Temperature 97.2 F L Temperature Source Temporal Pulse Rate 113 H Respiratory Rate 16 Blood Pressure 131/89 H Blood Pressure Mean 103 Pulse Ox 98 Oxygen Delivery Method Room Air Positive well nourished and well developed General Appearance ED: well developed HEENT Reports moist mucous membranes Eyes EOMs intact bilaterally Neck no lymphadenopathy Neck Narrative: Linear erythematous jiménez across her neck. Patient states these are from necklaces that she wore and she is adamant that she was not trying to hurt herself. Chest Wall inspection of chest normal and palpation of chest normal Resp normal respiratory effort and clear to auscultation bilaterally Cardio regular rate and regular rhythm GI non-tender Auscultation: hypoactive bowel sounds Palpation: soft Extremity normal to inspection Neuro oriented x3 and no sensory deficits noted Sensorium / Orientation: alert Motor Exam: strength 5/5 throughout Psych Mood & Affect: anxious and tearful MDM MDM MDM Narrative Medical decision making narrative: Patient agreed to taking Tylenol and Zofran for headache and nausea. CT scan of the head will be obtained. Radiography Diagnostic Testing: Clinical Impression(s) from Imaging Studies Brain CT 06/11/23 22:27 IMPRESSION: Negative head/brain CT without intravenous contrast. Electronically Signed: Fercho Montalvo MD at 23:19 EDT , Treatment and Re-Evaluation :: On repeat evaluation patient resting comfortably. CT scan reveals no acute abnormalities. Patient is reassured with this. She will follow-up with her counselor. Discharge Plan Triage Chief Complaint: Anxiety ED Provider: Sara Ram Dx/Rx/DC Orders Clinical Impression: Anxiety, Headache Instructions: ED Anxiety Reaction, ED Headache, Tension Prescriptions: No Action sumatriptan succinate 50 mg tablet 50 mg PO Q2H MDD 2 tablets PRN (Reason: migraine headache) Qty: 7 0RF Rx Instructions: do not exceed 4 doses per 24 hrs Primary Care Provider: Care Physician,No Primary Referrals: Santo Thomas MD [Med Staff - Payroll Representative] - 1-2 Weeks Disposition Disposition: Home, Self Care
[2023-06-11] MEDS: Acetaminophen 500 MG Tablet 1000 MG PO (22:34)
[2023-06-11] MEDS: Ondansetron ODT 4 MG Tablet PO (22:35)
== END 2023-06-11 23:35 | disposition home or self-care (01) ==
PROVIDERS: Emergency Provider Emergency Medicine; Visit Provider Emergency Medicine
DX: F41.9 Anxiety disorder, unspecified (principal); R51.9 Headache, unspecified; F17.200 Nicotine dependence, unspecified, uncomplicated
CPT/HCPCS: 70450; 99283

== ENCOUNTER 2023-08-29 03:38 | Emergency (ER) | payer MEDICAID, SELFPAY ==
[2023-08-29 03:39] VITALS: BP 136/80; PULSE 100; RESP 16; TEMP 36.6; O2SAT 98; BMI 33.2
[2023-08-29 03:42] VITALS: BP 136/80; PULSE 100; RESP 18; TEMP 36.6; O2SAT 98
--- OUTSIDE RECORDS SUMMARY | 2023-08-29 03:52 | XMS RPT_ITS | CCD ---
Author Name Unknown Address [address] [place] [address] Organization [facility] Care Team Providers Care Dental Services Director Name Role Phone MAGALIE SHAVER, DR ALICEA Primary Care Physician Required, No Pcp Unavailable Unavailable Cary Ch Unavailable Unavailabl Lamont Moreno Attending Unavailable ROD Ch Attending Anaya levi THOMAS MD, DR ALICEA Primary Care FELECIA Huddleston MD Attending Unavailable Nixon Thomas MD Primary Care Provider NIXON THOMAS Primary Care Unavailabl e GINAJULISSA Attending Unavailable JAVIER MCCAULEY Attending Unavailable NIXON THOMAS Primary Care Unavailabl e GINAJULISSA Attending Unavailable NIXON THOMAS Primary Care UnavailNIXON Reddy Primary Care Unavailrod e DELFIN SMALL Attending Unavailable NIXON THOMAS Primary Care Unavailabl e GINASHEMAREE Referring Unavailable NIXON THOMAS Primary Care Unavailabl NIXON Hankins Primary Care Unavailabl e Allergies Allergy Classification Reported Allergen(s) Allergy Type Date of Onset Reaction(s) Facility (1 source) Fish - dietary Anaphylaxis [facility] (5 sources) Fish; Translations: [FISH CONTAINING PRODUCTS] Drug Allergy 03-09-2023 Angioedema [facility] (5 sources) salmon oil; Translations: [SALMON OIL] Drug Allergy 01-14-2023 Angioedema [facility] Medications Current Medications Medication Drug Class(es) Dates Sig (Normalized) Sig (Original) diphenhydrAMINE hydrochloride 25 mg oral tablet (1 source) Histamine-1 Receptor Antagonist Start: 10-12-2021 Benadryl 25 mg oral tablet Dose : 25 mg = 1 tab(s), Oral, QID, PRN as needed for itching, # 24 tab(s), 0 Refill(s), Allergic reaction Start Date: 10/12/21 Status: Ordered famotidine 20 mg oral tablet (1 source) Histamine-2 Receptor Antagonist Start: 10-12-2021 Pepcid 20 mg oral tablet Dose : 20 mg = 1 tab(s), Oral, qDay, # 10 tab(s), 0 Refill(s), Allergic reaction Start Date: 10/12/21 Status: Ordered ibuprofen 600 mg oral tablet (1 source) Nonsteroidal Anti-inflammatory Drug Start: 03-02-2022 End: 03-06-2022 take 1 tablet by mouth every eight hours ibuprofen 600 mg oral tablet ; 1 tab(s) orally every 8 hours Quantity: 15 Refills: 0 Ordered: 02-Mar-2022 Cary Ch Start: 02-Mar-2022 End: 06-Mar-2022 Generic Substitution Allowed Comments: Do not take this drug if you are .It is very important that you take or use this exactly as directed. Do not skip doses or discontinue unless directed by your doctor.May cause drowsiness or dizziness.Obtain medical advice before taking any non-prescription drugs as some may affect the action of this medication.Take with food or milk. Completed/Discontinued Medications Medication Drug Class(es) Dates Sig (Normalized) Sig (Original) 1 ml medroxyPROGESTERone acetate 150 mg/ml injection (6 sources) Progestin Start: 3 End: 4 medroxyPROGESTERone 150 mg injection (DEPO-PROVERA) Problems Active Problems Problem Classification Problem Date Documented Date Episodic/Chronic Allergic reactions (1 source) Allergic disposition; Translations: [Allergy, unspecified, initial encounter] Onset: 10-12-2021 Episodic Anxiety disorders (2 sources) Anxiety disorder, unspecified; Translations: [Anxiety disorder, unspecified] Onset: 06-22-2022 Chronic Contraceptive and procreative management (2 sources) Patient encounter status; Translations: [Encounter for surveillance of injectable contraceptive] 06-12-2023 Episodic Headache; including migraine (2 sources) Headache; including migraine; Translations: [Headache, unspecified] Onset: 06-22-2022 Immunizations and screening for infectious disease (2 sources) Encounter for screening for infections with a predominantly sexual mode of transmission; Translations: [Encounter for screening for human papillomavirus (HPV)] Onset: 07-27-2023 Episodic Other circulatory disease (1 source) Personal history of other diseases of the circulatory system; Translations: [Personal history of other diseases of the circulatory system] Onset: 06-22-2022 Episodic Other screening for suspected conditions (not mental disorders or infectious disease) (1 source) Encounter for screening for malignant neoplasm of cervix; Translations: [Screening for cervical cancer] Onset: 07-27-2023 Episodic Past or Other Problems Problem Classification Problem Date Documented Da te Episodic/Chronic Abdominal pain (6 sources) Flank pain; Translations: [Abdominal pain, other specified site] Onset: 03-02-2022 03-02-2022 Episodic Results Test Name Value Interpretation Reference Range Facil ity Vital Signs Date Time Vital Sign Value Performing Clinician Facility 06-12-2023 15:22-0400 Body weight 89.36 kg Nurse Wstr Work Phone: [facility] 06-12-2023 15:22-0400 Diastolic blood pressure 70 mm[Hg] Nurse Wstr Work Phone: [facility] 06-12-2023 15:22-0400 Systolic blood pressure 104 mm[Hg] Nurse Wstr Work Phone: [facility] 03-02-2022 22:40-0400 Body temperature 97.88 [degF] No Pcp Required [facility] 03-02-2022 22:40-0400 Diastolic blood pressure 56 mm[Hg] No Pcp Required [facility] 03-02-2022 22:40-0400 Heart rate 78 /min No Pcp Required [facility] 03-02-2022 22:40-0400 Respiratory rate 20 /min No Pcp Required [facility] 03-02-2022 22:40-0400 SaO2% (BldA) [Mass fraction] 98 % No Pcp Required [facility] 03-02-2022 22:40-0400 Systolic blood pressure 111 mm[Hg] No Pcp Required [facility] 03-02-2022 19:29-0400 Body height 167.6 cm No Pcp Required [facility] 03-02-2022 19:29-0400 Body weight 66 kg No Pcp Required [facility] 10-12-2021 15:13-0500 Body temperature 97.7 [degF] PRISCA JUAREZ [facility] 10-12-2021 15:13-0500 Diastolic blood pressure 81 mm[Hg] PRISCA JUAREZ MD [facility] 10-12-2021 15:13-0500 Heart rate 73 /min PRISCA JUAREZ MD [facility] 10-12-2021 15:13-0500 Respiratory rate 18 /min PRISCA JUAREZ MD [facility] 10-12-2021 15:13-0500 Systolic blood pressure 118 mm[Hg] PRISCA JUAREZ [facility] Encounters Encounter Date Encounter Type Care Provider Facility Start: 08-25-2023 End: 08-25-2023 Emergency department patient visit NIXON GAITANRICHFIELD Facility:[facility] Start: 07-27-2023 End: 07-28-2023 ambulatory [facility] Facility:[facility] Start: 07-27-2023 Encounter for gynecological examination (general) (routine) without abnormal findings JULISSA COLEMAN [facility] Start: 06-12-2023 End: 06-12-2023 Refill Julissa Coleman HAT MARKER.INSTRUCTOR ADJUNCT SURGICAL TECHNICIAN Work Phone: OB/Gynecology Procedures Date Procedure Procedure Detail Performing Clinician Start: 06-12-2023 Urine test visual color cmprsn metherika Davila HAT MARKER.CNM Work Phone: None (qualifier value) PRISCA JUAREZ MD Plan of Treatment Date Care Activity Detail Author Start: 04-17-2023 Influenza vaccination Influenza Vacc ine (#1) [facility] Start: 08-17-2022 Depression Assessment Depression Ass essment [facility] Start: 04-30-2020 Urine microalbumin profile DTaP,Tdap,Td Vaccine (7 - Td or Tdap) [facility] Start: 2018 Pap Testing Pap Testing [facility] Start: 2015 Hepatitis C Screening Hepatitis C Sc reening [facility] Start: 2015 HIV Screening HIV Screening [facility] Start: 2011 Peds To Adult Transi tion Annual Assessment Peds To Adult Transition Annual Assessment [facility] Start: 2009 Peds To Adult Transi tion Initial Discussion Peds To Adult Transition Initial Discussion [facility] Start: 2003 Pneumococcal vaccination Pneum ococcal Vaccine (1 - PCV) [facility] Start: 1997 Covid-19 Vaccine (#1) Covid-19 Vacci ne (#1) [facility] Immunizations Immunization Date Immunization Notes Care Provider Caroline deras 08-01-2010 influenza virus vacc ine, unspecified formulation Delfin Small MD Work Phone: [facility] Payers Date Payer Category Payer Medicaid [employer] [place] [id number] 2022-Present [phone] [address] [place] [address] Medicaid [id number] 2022 Unknown [id number] 2022 Private Health Insurance [id number] 2022 Private Health Insurance [id number] 2022 Private Health Insurance [employer] AETNA POS [id number] 2022-Present [phone] [address] [place] [address] POS [id number] 1997 Unknown [id number] 1997 Unknown [id number] 1963 Unknown [id number] Unknown [employer] Social History Date Type Detail Facility [facility] Sex Assigned At Female [facility] Start: 01-14-2023 Tobacco smokin g consumption unknown [facility] History of tobacco use Passive smoker [facility] Start: 01-14-2023 End: 06-12-2023 Alcohol intake Current drinker of alcohol (finding) [facility] Start: 01-14-2023 End: 01-20-2023 History of Social function [facility] Start: 01-14-2023 End: 01-20-2023 Tobacco use panel [facility] National Score (1-100), lower number is lower risk 68 [facility] Start: 01-14-2023 Alcohol Comment socially consu mes some wine/liquor but denies daily/weekly use [facility] Start: 1997 Sex Assigned At Not on file [facility] Start: 06-12-2023 Tobacco smoking status NHIS Occasional tobacco smoker [facility] History of tobacco use Cigarette Smoker [facility] Start: 06-12-2023 Tobacco use and exposure Smokeless tobacco non-user [facility] Progress note 07-27-2023 Note Date & Type Note Facility 07-27-2023 Note HNO ID: [id number] Author: Julissa Coleman APRN.INSTRUCTOR ADJUNCT SURGICAL TECHNICIAN Service: ? Author Type: Nurse Practitioner Type: Progress Notes Filed: 07/27/2023 3:31 PM Note Text: Hat Marker offered: Patient declinesTai Ferrara is a 28 year old No obstetric history on file. who presents for an annual gynecologic exam with complaints, vaginal dryness and weight gain . Menses: no menses Contraception: Depo Provera HPV vaccine: N/A Last Pap: 2021 normal HPV: N/A History of abnormal pap: No Last mammogram: never Sexually active: Yes History of STDS: None Pain with intercourse: Yes OB History No obstetric history on file. Automation Controls Engineer History LMP: LMP Unknown, Injection Age at Menarche: Age at First : Age at Menopause: Automation Controls Engineer History Comments: Sexual Activity: Yes; Male Contraception: No contraception data on record No past medical history on file.No past surgical history on file.No family history on file.SOCIAL HISTORY Social History Tobacco Use Smoking status: Some Days Types: Cigarettes Passive exposure: Past Smokeless tobacco: Never Vaping Use Vaping Use: current everyday user Substances: Nicotine, Flavoring Devices: Disposable Substance Use Topics Alcohol use: Yes Comment: socially consumes some wine/liquor but denies daily/weekly use Drug use: Yes Frequency: 1.0 times per week Types: Marijuana REVIEW OF SYSTEMS Abdomen: No abdominal pain, nausea, vomiting, diarrhea, or constipation. No bloating, early satiety, indigestion, or increased flatulence. Bladder: No dysuria, gross hematuria, urinary frequency, urinary urgency, or incontinence. Breast: No breast lumps, nipple d/c, overlying skin changes, redness or skin retraction. Allergies and current medication updated:Yes EXAM: There were no vitals taken for this visit. GENERAL: pleasant, female in no apparent distress HEENT: Normocephalic, atraumatic, mucus membranes moist, and no lesions NECK: Supple, full range of motion, no adenopathy, and thyroid normal DERMATOLOGY: Normal, without lesions, non-icteric, and non-hirsute BREAST: soft, non-tender, symmetric, no dominant mass, normal nipple-areolar complex, no lymphadenopathy, and no nipple discharge CHEST: Normal inspiratory effort ABDOMEN: soft, non-tender, and no masses PELVIC: external genitalia normal, normal Bartholin's glands, urethra, Normandy's glands, no vulvar lesions, no cervical lesions, good vaginal support, physiologic discharge present, normal appearing perineal body and perianal region BIMANUAL: uterus normal size, shape and consistency, no adnexal masses, and non-tender RECTOVAGINAL: deferred. NEURO: alert and oriented x3,exam grossly non-focal EXTREMITIES: normal ASSESSMENT/PLAN: 1) Health maintenance: Pap/HPV up to date. Mammogram starting age 40. Nutrition, exercise and routine health maintenance exams reviewed. 2) Contraception: Depo Provera. Contraceptive options reviewed and information provided. 3) STD screening: Accepts full STD screeening including HIV, Syphilis and Hepatitis. 4) Follow up one year or sooner as needed Discuss weight gain and vaginal dryness are related to the Depo Recommended switching BC, using coconut oil and lubricant for intercourse Julissa Coleman APRN.MARIANELA [facility] Progress note 06-12-2023 Note Date & Type Note Facility 06-12-2023 Note HNO ID: [id number] Author: Sarita Lopez RN Service: ? Author Type: ? Type: Progress Notes Filed: 06/12/2023 3:42 PM Note Text: Patient identified by name and date of . Sriram Jerome is here for a Depo Provera injection. Patient brought medication. Date last injected: Unsure of last injection date. Patient a transfer of care from [facility]. Urine test today in office was negative. Depo-Provera, 150 mg, administered IM left upper quadrant gluteus, Lot # [id number], expiration date 12/14/2024. Depo-Provera was given without incident. Date of last menses: No LMP recorded (lmp unknown). Irregular bleeding - No Menses ceased - Yes STD prevention discussed: Yes Patient instructed to return to clinic in 12 weeks. MS [email or web address] [email or web address].pdf Provider Estefanía Davila CNM was present in office at time of injection. Sarita Lopez RN [facility] History of Present illness Narrative 06-12-2023 Sarita Lopez RN - 06/12/2023 2:56 PM EDT Note Date & Type Note Facility 06-12-2023 History of Presen t illness Narrative Patient identified by name and date of . Sriram Jerome is here for a Depo Provera injection. Patient brought medication. Date last injected: Unsure of last injection date. Patient a transfer of care from [facility] [employer]. Urine test today in office was negative. Depo-Provera, 150 mg, administered IM left upper quadrant gluteus, Lot # [id number], expiration date 12/14/2024. Depo-Provera was given without incident. Date of last menses: No LMP recorded (lmp unknown). Irregular bleeding - No Menses ceased - Yes STD prevention discussed: Yes Patient instructed to return to clinic in 12 weeks. MS [email or web address] [email or web address]-Provera%[email or web address]%[email or web address] r.pdf Provider Estefanía Davila CNM was present in office at time of injection. Sarita Lopez RN documented in this encounter [facility] Note 06-12-2023 Addendum Note - Julissa Coleman APRN.CNP - 06/12/2023 10:55 AM EDTTelephone Encounter - Julissa Coleman APRN.CNP - 06/12/2023 10:55 AM EDTAddendum Note - Sarita Lopez RN - 06/12/2023 10:01 AM EDT Note Date & Type Note Facility 06-12-2023 Miscellaneous Notes Addended by: JULISSA COLEMAN on: 06/12/2023 10:55 AM Modules accepted: Orders Order filed. Julissa Coleman APRN.CNP Addended by: SARITA LOPEZ RN on: 06/12/2023 10:01 AM Modules accepted: Orders Patient also needs a CAM order. Sarita Lopez RN New pt from [place], time for depo. Pt was late for her appointment today and is needing a refill. Pt is being assisted to reschedule yearly exam and will be put on nurse schedule today to receive her depo. Harper Miller LPN documented in this encounter [facility] Note 06-11-2023 Addendum Note - Delfin Small MD - 06/11/2023 11:32 AM EDTAddendum Note - Alexa Arvizu RN - 06/11/2023 11:18 AM EDTTelephone Encounter - Alexa Arvizu RN - 06/11/2023 11:17 AM EDT Note Date & Type Note Facility 06-11-2023 Miscellaneous Notes Addended by: DELFIN SMALL on: 06/11/2023 11:32 AM Modules accepted: Orders Addended by: ALEXA ARVIZU RN on: 06/11/2023 11:18 AM Modules accepted: Orders Patient is scheduled for new annual on 06/15 at 9am. Would like to get depo provera at that time. Order pended for rx to pharmacy. Alexa Arvizu RN Patient was scheduled at [facility] for Depo-provera (undefined in scheduling) Patient actually needed a consult, and new order for depo-provera. Her previous provider is no longer available in her area. Patient would be new consult and new CC patient. Per Dr. Small [place] office to order Depo-Provera for patient. Patient scheduled at [facility] for Annual and injection 06/15/2023. documented in this encounter [facility] Progress note 06-10-2023 Note Date & Type Note Facility 06-10-2023 Note HNO ID: [id number] Author: Delfin Small MD Service: ? Author Type: Physician Type: Progress Notes Filed: 06/10/2023 3:14 PM Note Text: Sriram Jerome is a 28 year old No obstetric history on file. who presents for her annual gynecologic exam. No LMP recorded (lmp unknown). Automation Controls Engineer concerns wants cx. Wants to stay on the depo. No past medical history on file. No past surgical history on file. No family history on file. Social History Tobacco Use Passive exposure: Past Vaping Use Vaping Use: current everyday user Substances: Nicotine, Flavoring Devices: Disposable Substance Use Topics Alcohol use: Yes Comment: socially consumes some wine/liquor but denies daily/weekly use Drug use: Yes Frequency: 1.0 times per week Types: Marijuana REVIEW OF SYSTEMS IS NEGATIVE PHYSICAL EXAM: There were no vitals taken for this visit. NECK: No goiter or thyroid enlargement CHEST: Normal LUNGS: Clear HEART: RRR BREAST: No masses ABDOMEN: Soft, non-tender, No masses PELVIC: Normal external genitalia, no lesions VAGINA: Normal CERVIX: Normal UTERUS: Normal AX - L: No masses AX - R: No masses ASSESSMENT/PLAN: ANNUAL EXAM Pap ordered. Reflex HPV ordered. Reviewed and encouraged self-breast exam. 2703-6911 mg of calcium daily. Encourged a healthy diet and exercise. Return to office in one year or earlier as needed. Delfin Small MD [facility] Progress note 05-30-2023 Note Date & Type Note Facility 05-30-2023 Note HNO ID: [id number] Author: Note, Interface Service: ? Author Type: ? Type: Progress Notes Filed: 05/30/2023 2:24 AM Note Text: Epic Scheduled Downtime: 05/30/2023 1:00:00 AM to 05/30/2023 1:28:00 AM [facility] Discharge instructions 10-12-2021 Note Date & Type Note Facility 10-12-2021 Hospital Discharg e instructions Patient Education 10/12/2021 15:17:18 Food Allergy Food Allergy The best way to deal with food allergies is to avoid the foods you are allergic to. Understand and be aware of the foods that you have reacted to. Also be cautious of foods or dishes that may have flavorings or small amounts of foods that you are allergic to. Symptoms of food allergy may start within minutes, but can start 2 hours after eating or later. Common symptoms can include: Nausea Vomiting Diarrhea or stomach cramps Itchy rash (hives) Swelling of the eyes, lips, face or tongue Wheezing Trouble breathing or swallowing Throat tightness Dizziness or fainting This kind of allergic reaction, called anaphylaxis, can be life threatening. In mild and moderate cases, the symptoms usually begin improving within 6 to 24 hours. People with certain health problems, such as asthma and eczema, may be more likely to have food allergies. Foods that people are most commonly allergic to are milk or dairy products, eggs, peanuts, tree nuts, soy, shellfish, and wheat. Remember that any food can cause a reaction. Treatment for a severe allergic reaction can include epinephrine. If you have a severe food allergy, or have had severe allergic reactions even if you don't know the cause, you should carry this medicine with you for self-injection. It is available by prescription. It is also available in a lower dose form for children from your healthcare provider. Home care The following guidelines will help you care for yourself at home: If your symptoms were moderate to severe, they may fluctuate for the next 24 hours. It may be best to rest at home during that time. Don't use tobacco or alcohol because they can make symptoms worse. They can also interact with the medicines you are taking to treat the allergic reaction. If you know what foods caused your reaction today, avoid them in the future. The next and each reaction after this may make your body more sensitive to these foods. This can cause a worse reaction later. Tell your family members, friends, and doctors about your food allergy, especially in an emergency situation since they need to know how to give you epinephrine if you are unable to. This can be lifesaving. Learn how to read food labels so you can check for the substance that you reacted to. If a food does not have a label, it is best to avoid it. When in restaurants, ask about ingredients and tell the staff, If I eat a dish containing (food you are allergic to), I could have a severe allergic reaction. If your reaction was severe, get a medical alert bracelet or necklace that notes your allergy. If epinephrine is prescribed, carry it with you at all times. Learn how to use the device. If you begin to feel the symptoms of another reaction, use the epinephrine to inject yourself right away, and call 911. Don t wait until symptoms become severe. Oral allergy medicines (such as diphenhydramine) are antihistamines that can help with the reaction. You can buy them at any pharmacy or supermarket. They come in liquids, pills, or capsules. Unless your doctor gave you a prescription antihistamine, you can use these medicines to ease itching. Allergy medicines can make you sleepy, so be careful, especially when driving or working. For this reason, you may want to use lower doses during the day and save the higher doses for bedtime. Don't use diphenhydramine if you have glaucoma or if you are a man with trouble urinating because of an enlarged prostate. If allergy medicines with diphenhydramine make you too sleepy, talk with your healthcare provider. He or she can recommend an over-the counter antihistamine that won't make you sleepy. These may not work as well, though. Follow-up care Follow up with your healthcare provider if your symptoms don't get better over the next 2 to 3 days. If you don't know what caused this reaction, your provider may order skin tests and blood tests, or an elimination diet. You can find an charge entry specialist in your area by contacting: [employer], www.aaaai.org [employer], www.acaai.org When to seek medical advice Call your healthcare provider right away if any of these occur: Your symptoms get worse New or worse swelling in the face, eyelids, lips, mouth, throat, or tongue Mild trouble swallowing, breathing, or wheezing Fever of 100.4 F (38.0 C) or higher, or as directed by your healthcare provider Severe abdominal pain Persistent vomiting (unable to keep liquids down) or constant diarrhea Blood or mucus in the stool Call 911 If any of these occur, give yourself injectable epinephrine and call 911: Significant trouble breathing, talking, or swallowing Any change in level of alertness or unconsciousness, including dizziness, weakness, or fainting Cool, moist skin Fast, weak heartbeat Severe wheezing Severe or worsening hives Severe swelling of the face, tongue, or lips Drooling Vomiting that happens soon after eating a food you think you are allergic to Explosive diarrhea [id number] [employer] [employer]. [address] [place] [address], [place] [address]. All rights reserved. This information is not intended as a substitute for professional medical care. Always follow your healthcare professional's instructions. 10/12/2021 15:17:16 ALLERGIC REACTION, Other (Local) Allergic Reaction, Other [Local] You are having an allergic reaction. This is due to exposure to something you have become sensitive to. This may be a household product, medicine, chemical, soap, cream, cosmetics or jewelry. A sting from an insect (that you were not aware of) can also cause this reaction. Sometimes it is difficult to know exactly what caused this reaction. There may be redness, itching, and swelling. The rash will fade over the next few days. Home Care: If itching is a problem, avoid anything that heats up your skin (hot showers/baths, direct sunlight) since heat will make itching worse. An ice pack (ice cubes in a plastic bag, wrapped in a towel) will reduce local areas of redness and itching. Lanacaine cream or Solarcaine spray (or other product containing benzocaine ) will reduce the itching. Oral Benadryl (diphenhydramine) is an antihistamine available at drug and grocery stores. Unless a prescription antihistamine was given, Benadryl may be used to reduce itching if large areas of the skin are involved. Use lower doses during the daytime and higher doses at bedtime since the drug may make you sleepy. [NOTE: Do not use Benadryl if you have glaucoma or if you are a man with trouble urinating due to an enlarged prostate.] Claritin (loratadine) is an antihistamine that causes less drowsiness and is a good alternative for daytime use. Follow Up with your doctor or this facility in the next two days if your symptoms do not continue to improve. Get Prompt Medical Attention if any of the following occur: Spreading areas of itching, redness or swelling New or worse swelling in the face, eyelids, lips, mouth, throat or tongue Trouble swallowing or breathing Dizziness, weakness or fainting Signs of infection: Spreading redness Increased pain or swelling Fever of 100.4 F (38 C) or higher, or as directed by your healthcare provider Colored fluid draining from the wound [id number] [employer]. [address] [place] [address]. All rights reserved. This information is not intended as a substitute for professional medical care. Always follow your healthcare professional's instructions. Follow Up Care 10/12/2021 14:57:44 With:NIXON THOMAS MD Address: [address] [place] [phone]- [phone] When:2-4 days only if needed [facility] + Plan note Note Date & Type Note Facility Evaluation + Plan note No data available for this section [facility] Evaluation note Note Date & Type Note Facility documented in this encounter [facility] Summary Purpose Family History No Family History Records FoundNo Family History Records FoundNo Family History Records FoundNo Family History Records Found Advance Directives No Advanced Directives Records FoundNo Advanced Directives Records FoundNo Advanced Directives Records FoundNo Advanced Directives Records Found Medications Administered Section Active Administered Medications - up to 3 most recent administrations Medication Order MAR Action Action Date Dose Rate Site medroxyPROGESTERone 150 mg injection (DEPO-PROVERA) 150 mg, INTRAMUSCULAR, EVERY 12 WEEKS, 4 doses, First dose on Thu06/12/23 at 1100, Last dose on Thu02/19/24 at 1100, Hazardous Potential Reproductive Risk Drug: Use appropriate PPE. Given 06/12/2023 3:39 PM EDT 150 mg Buttocks, Left Additional Source Comments <item> Privacy Markings (unrecogniz ed section and content) Section Author: Cailin Quevedo PROHIBITION ON REDISCLOSURE OF CONFIDENTIAL INFORMATION This notice accompanies a disclosure of information concerning a client made to you with the consent of such client. INFORMATION SOURCE (unrecogn ized section and content) DATE CREATED AUTHOR AUTHOR'S ORGANIZ ATION 12/06/2022 [facility] ([place]) DATE CREATED AUTHOR AUTHOR'S ORGANIZ ATION 07/29/2023 [facility] DATE CREATED AUTHOR AUTHOR'S ORGANIZ ATION 08/25/2023 [facility] l Source Comments (unrecognize d section and content) In the event this informatio n is protected by the Federal Confidentiality of Alcohol and Drug Abuse Patient Records regulations: The Federal rules restrict any use of the information to criminally investigate or prosecute any alcohol or drug abuse patient.[facility] the event this information is protected by the Federal Confidentiality of Alcohol and Drug Abuse Patient Records regulations: The Federal rules restrict any use of the information to criminally investigate or prosecute any alcohol or drug abuse patient.[facility] Institute[facility] the event this information is protected by the Federal Confidentiality of Alcohol and Drug Abuse Patient Records regulations: The Federal rules restrict any use of the information to criminally investigate or prosecute any alcohol or drug abuse patient.[facility] Reason for Visit (unrecogniz ed section and content) Reason Comments Refill Request Reason Onset Date Comments Depo Provera Injection 06/12/2023 Care Teams (unrecognized sec tion and content) Dental Services Director Relationship Specialty Start Date End Date Nixon Thomas MD [address] [place] [address] PCP - General Family Medicine 01/14/23 Dental Services Director Relationship Specialty Start Date End Date Nixon Thomas MD [address] [facility] [address] PCP - General Family Medicine 01/14/23 FOR RECORDS PERTAINING TO PATIENTS WHO ARE OR HAVE BEEN ENROLLED IN A CHEMICAL DEPENDENCY/SUBSTANCEABUSE PROGRAM, SOME INFORMATION MAY BE OMITTED. This clinical summary was aggregated from multiple sources. Caution should be exercised in using it in the provision of clinical care. This summary normalizes information from multiple sources, and as a consequence, information in this document may materially change the coding, format and clinical context of patient data. In addition, data may be omitted in some cases. CLINICAL DECISIONS SHOULD BE BASED ON THE PRIMARY CLINICAL RECORDS. [employer] [facility]. provides no warranty or guarantee of the accuracy or completeness of information in this document.
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
[2023-08-29 05:29] VITALS: BP 115/79; PULSE 69; RESP 16; O2SAT 97
== END 2023-08-29 05:29 | disposition home or self-care (01) ==
PROVIDERS: Emergency Provider Emergency Medicine; Visit Provider Emergency Medicine
DX: S09.90XA Unspecified injury of head, initial encounter (principal); S80.11XA Contusion of right lower leg, initial encounter; F17.200 Nicotine dependence, unspecified, uncomplicated; V89.2XXA Person injured in unspecified motor-vehicle accident, traffic, initial encounter
CPT/HCPCS: 70450; 71045; 72040; 99282

== ENCOUNTER → 2023-12-07 | Outpatient (CLI) | payer MEDICAID, SELFPAY | END | disposition home or self-care (01) | LOC: LABSPEC 08:05 | PROVIDERS: Visit Provider Nurse Practitioner Family | DX: N39.0 Urinary tract infection, site not specified (principal) | CPT/HCPCS: 87086; 87088 ==

== ENCOUNTER 2024-02-10 19:31 | Emergency (ER) | payer MEDICAID, SELFPAY ==
[2024-02-10 19:36] VITALS: BP 104/70; PULSE 88; RESP 18; TEMP 36.1; O2SAT 97; BMI 31.8
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
--- NOTE | 2024-02-10 20:04 | ED.VIS.GI ---
HPI HPI - GI History of Present Illness Chief Complaint: Abd Pain Detail of Chief Complaint: Abdominal pain and constipation Informant: patient Narrative Narrative: Patient presents to the emergency department complaint of abdominal pain. She states that she woke up in the middle the night Thursday morning with pain to the right lower abdomen. She went to [facility] where they did some x-rays and told her she may have constipation and gave her MiraLAX. Yesterday she went [facility] where they apparently they did some blood work and she tells me it looked normal. Patient was not happy with her care and left before they could do any type of imaging. Patient had a abdominal x-ray at [place]. Patient continues to have discomfort to her abdomen and is not putting out much stool. She denies any discomfort with eating. She has had no vomiting. She had no fever. She denies urinary symptoms. Patient did have a bowel movement today that was soft. [facility] Medical History Asthma Migraine Home Medications ?Medication ?Instructions ?Recorded ?Last Taken ?Type medroxyprogesterone 150 mg/mL mg IM 12/06/23 Unknown History intramuscular syringe Allergy/AdvReac Type Severity Reaction Status Date / Time fish derived Allergy Swelling Verified 02/10/24 19:36 Surgical History H/O wisdom tooth extraction Social History household members: family Smoking Status: Light Smoker (<10/day) ROS ROS ED Review of Systems ROS Unobtainable: other Constitutional Constitutional ED: Reports lethargy; Denies chills, fever(s), sweats or weight loss Eyes Eyes: Denies blurry vision, change in vision or diplopia ENT ENT ED: Denies rhinorrhea or sore throat Cardiovascular Cardiovascular: Denies chest pain, orthopnea or racing heartbeat Respiratory/Chest Respiratory/Chest: Denies cough, dyspnea, dyspnea on exertion, orthopnea or sputum Gastrointestinal Gastrointestinal: Reports abdominal pain and constipation; Denies diarrhea, nausea or vomiting Genitourinary Genitourinary ED: Denies dysuria, hematuria or urinary frequency Musculoskeletal Musculoskeletal: Denies arthralgias, back pain, myalgias or neck pain Integumentary Denies abscess, Abrasions or rash Neurologic Neurologic: Denies headache(s) or weakness Psychiatric Psychiatric: Denies anxiety, depression or suicidal thoughts Endocrine Endocrinology: Denies polydipsia, polyphagia or polyuria Hematologic/Lymphatic Hematologic/Lymphatic: Denies easy bleeding, easy bruising or lymphadenopathy Allergic/Immunologic Allergic/Immunologic ED: Denies mouth swelling, tongue swelling or urticaria EXAM Physical Exam Const Vital Signs: 02/10/24 19:36 02/10/24 21:21 Temperature 97 F L Temperature Source Temporal Pulse Rate 88 74 Respiratory Rate 18 16 Blood Pressure 104/70 148/77 H Blood Pressure Mean 81 100 Pulse Ox 97 98 Oxygen Delivery Method Room Air Room Air Positive well nourished and well developed General Appearance ED: well developed and NAD HEENT Reports TM's clear and moist mucous membranes normocephalic and atraumatic; Negative for trauma or tenderness Tympanic Membrane ED: Yes TM's clear Eyes PERRL and EOMs intact bilaterally General Eye ED: Negative for pale conjunctiva or scleral icterus Neck no lymphadenopathy, supple and no JVD General: Negative for tenderness Chest Wall inspection of chest normal and palpation of chest normal Chest: Negative for tenderness Resp normal respiratory effort and clear to auscultation bilaterally Effort and Inspection: Negative for respiratory distress or pain with movement Auscultation: Negative for rhonchi, wheezes or diminished lung sounds Cardio regular rate, regular rhythm, S1 normal heart sound, S2 normal heart sound and no murmurs Peripheral Pulses: pulses 2+ throughout GI normal to inspection, nondistended, normoactive bowel sounds, soft to palpation, non-distended and no masses GI Narrative: Mild diffuse tenderness over the lower abdomen. There is no rebound, rigidity, or. Signs. No mass palpated. Back/Spine no CVA tenderness and no thoracic nor lumbar tenderness Extremity normal to inspection General Extremety ED: Negative for edema General Extremity: Negative for edema Neuro oriented x3, CN's II-XII intact bilaterally, no sensory deficits noted and gait normal Sensorium / Orientation: awake, alert, oriented to person, oriented to place and oriented to time Motor Exam: strength 5/5 throughout and strength abnormal Psych mental status grossly normal Skin no rashes or lesions noted and no wounds MDM MDM MDM Narrative Medical decision making narrative: Patient presents with abdominal pain and feeling like she is not emptying her colon like normal. This is her third visit now and she has been the [facility] as well as [facility] and out of our emergency department. She clinically looks well. Her abdominal exams relatively benign. IV line established. CBC with differential obtained was normal. Chemistries unremarkable. LFTs were normal. hCG was negative. Urinalysis normal. CT scan of the abdomen pelvis showed no acute disease process and normal appendix and no evidence for obstruction. There was not significant stool burden in the colon. This point etiology of her discomfort unclear. I feel she can be safely discharged to home. Patient advised to follow-up with primary care physician in 3 to 5 days. Will also refer to GI. Advised to return if worsening pain, fever, vomiting, or condition worsening way. Lab Data Attestation: I reviewed the patient's lab results. Labs: Laboratory Results - last 24 hr 02/10/24 02/10/24 02/10/24 20:55 20:55 21:08 WBC Cancelled Corrected WBC Cancelled RBC Cancelled Hgb Cancelled Hct Cancelled MCV Cancelled MCH Cancelled MCHC Cancelled RDW Std Deviation Cancelled RDW Coeff of Dru Cancelled Plt Count Cancelled MPV Cancelled Immature Gran % (Auto) Cancelled Neut % (Auto) Cancelled Lymph % (Auto) Cancelled [place] % (Auto) Cancelled Eos % (Auto) Cancelled Baso % (Auto) Cancelled Absolute Neuts (auto) Cancelled Absolute Lymphs (auto) Cancelled Total Counted Cancelled Neutrophils % (Manual) Cancelled Band Neutrophils % Cancelled Lymphocytes % (Manual) Cancelled Monocytes % (Manual) Cancelled Eosinophils % (Manual) Cancelled Basophils % (Manual) Cancelled Metamyelocytes % Cancelled Myelocytes % Cancelled Promyelocytes % Cancelled Blast Cells % Cancelled Plasma Cell % (Manual) Cancelled Other Cells % Cancelled Nucleated RBC % Cancelled Nucleated RBCs/100 WBC Cancelled Differential Comment Cancelled Diff Path Review Cancelled Hypersegmented Neuts Cancelled Atypical Lymphocytes Cancelled Reactive Lymphocytes Cancelled Smudge Cells Cancelled Toxic Granulation Cancelled Toxic Vacuolation Cancelled Dohle Bodies Cancelled Eliezer Rods Cancelled Platelet Estimate Cancelled Plt Morphology Comment Cancelled RBC Morphology Cancelled Cancelled Polychromasia Cancelled Hypochromasia Cancelled Basophilic Stippling Cancelled Anisocytosis Cancelled Microcytosis Cancelled Macrocytosis Cancelled Spherocytes Cancelled Sickle Cells Cancelled Target Cells Cancelled Tear Drop Cells Cancelled Ovalocytes Cancelled Stomatocytes Cancelled [place] Bodies Cancelled [place] Cells Cancelled Bite Cells Cancelled Crenated Cell Cancelled Acanthocytes (Spur) Cancelled Rouleaux Cancelled Schistocytes Cancelled Sodium 138 Potassium 3.5 Chloride 108 H Carbon Dioxide 27.0 Anion Gap 3 L BUN 10 Creatinine 1.00 Estim Creat Clear Calc 96.06 Est GFR (MDRD) Af Amer 86 Est GFR (MDRD) Non-Af 71 BUN/Creatinine Ratio 10.0 Glucose 126 H Calcium 9.0 Total Bilirubin 0.30 AST 10 L ALT 18 Alkaline Phosphatase 81 Total Protein 7.6 Albumin 4.0 Globulin 3.6 Albumin/Globulin Ratio 1.1 Serum , Qual NEGATIVE Urine Color Yellow Urine Clarity Clear Urine pH 6.5 Ur Specific [place] 1.010 Urine Protein Negative Urine Glucose (UA) Normal Urine Ketones Negative Urine Occult Blood Negative Urine Nitrite Negative Urine Bilirubin Negative Urine Urobilinogen Normal Ur Leukocyte Esterase 100 H Urine RBC 0 SEEN Urine WBC 0-5 SEEN Ur Squamous Epith Cells 0-5 SEEN Urine Bacteria 0 SEEN Urine Mucus 0 SEEN 02/10/24 21:39 WBC 5.4 Corrected WBC RBC 4.58 Hgb 12.5 Hct 39.4 MCV 86.0 MCH 27.3 MCHC 31.7 L RDW Std Deviation 39.7 RDW Coeff of Dru 12.8 Plt Count 182 MPV 10.8 Immature Gran % (Auto) 0.200 Neut % (Auto) 58.7 Lymph % (Auto) 29.6 [place] % (Auto) 9.5 Eos % (Auto) 1.1 Baso % (Auto) 0.9 Absolute Neuts (auto) 3.2 Absolute Lymphs (auto) 1.59 Total Counted Neutrophils % (Manual) Band Neutrophils % Lymphocytes % (Manual) Monocytes % (Manual) Eosinophils % (Manual) Basophils % (Manual) Metamyelocytes % Myelocytes % Promyelocytes % Blast Cells % Plasma Cell % (Manual) Other Cells % Nucleated RBC % 0 Nucleated RBCs/100 WBC Differential Comment Diff Path Review Hypersegmented Neuts Atypical Lymphocytes Reactive Lymphocytes Smudge Cells Toxic Granulation Toxic Vacuolation Dohle Bodies Eliezer Rods Platelet Estimate Plt Morphology Comment RBC Morphology Polychromasia Hypochromasia Basophilic Stippling Anisocytosis Microcytosis Macrocytosis Spherocytes Sickle Cells Target Cells Tear Drop Cells Ovalocytes Stomatocytes [place] Bodies Krishna Cells Bite Cells Crenated Cell Acanthocytes (Spur) Rouleaux Schistocytes Sodium Potassium Chloride Carbon Dioxide Anion Gap BUN Creatinine Estim Creat Clear Calc Est GFR (MDRD) Af Amer Est GFR (MDRD) Non-Af BUN/Creatinine Ratio Glucose Calcium Total Bilirubin AST ALT Alkaline Phosphatase Total Protein Albumin Globulin Albumin/Globulin Ratio Serum , Qual Urine Color Urine Clarity Urine pH Ur Specific [place] Urine Protein Urine Glucose (UA) Urine Ketones Urine Occult Blood Urine Nitrite Urine Bilirubin Urine Urobilinogen Ur Leukocyte Esterase Urine RBC Urine WBC Ur Squamous Epith Cells Urine Bacteria Urine Mucus Radiography Diagnostic Testing: Clinical Impression(s) from Imaging Studies Abdomen/Pelvis CT 02/10/24 20:04 IMPRESSION: No significant colorectal stool burden no evidence of bowel obstruction. No evidence of acute appendicitis. Electronically Signed: Abner Blanca DO at 22:03 EDT , Discharge Plan Triage Chief Complaint: Abd Pain ED Provider: Tony Johnson Dx/Rx/DC Orders Clinical Impression: Abdominal pain Instructions: ED Abdominal Pain Unkn Cause Fem Prescriptions: No Action medroxyprogesterone 150 mg/mL syringe IM Primary Care Provider: Care Physician,No Primary Referrals: Zhao Epstein DO [Med Staff - Active Staff] - 5-7 Days Care Physician,No Primary [Primary Care Provider] - Print Language: Estonian Disposition Disposition: Home, Self Care
[2024-02-10] MEDS: 0.9% Normal Saline (1000mL) 1,000 ML 125 ML IV (20:36)
[2024-02-10 21:20] LABS: Bacteria 0 SEEN /hpf (None Seen); Mucous, Urine 0 SEEN /hpf (<or=2+); Red Blood Cells-Urine 0 SEEN /hpf (0-5)
[2024-02-10 21:21] VITALS: BP 148/77; PULSE 74; RESP 16; O2SAT 98
[2024-02-10 21:22] LABS: Internal QC Validated? YES +Cl - CLEAR BKGD; Pregnancy, Serum, hCG Quali. NEGATIVE Negative
[2024-02-10 21:22] LABS: Color, Urine Yellow (Yellow); Glucose, Dipstick Normal (Normal); Ketone-Dipstick Negative (Negative); Leukocyte Esterase-Dipstick 100 /ul (Negative); Nitrite-Dipstick Negative (Negative); Occult Blood-Urine Negative /ul (Negative); Protein-Dipstick Negative (Negative); Urine Bilirubin Dipstick Negative (Negative); Urine Clarity Clear (Clear); Urine Urobilinogen Normal (Normal); Urine pH 6.5 (5.0 - 8.0)
[2024-02-10 21:28] LABS: ALB/GLOB Ratio 1.1 RATIO (0.9-2.4); AST(SGOT) 10 U/L (15-37); Alanine Aminotransfer ALT/SGPT 18 U/L (13-56); Alkaline Phosphatase 81 U/L (45-117); Anion Gap 3 (5-15); BUN 10 mg/dL (7-18); Chloride 108 mmol/L (98-107); EST Glomerular Filtration Rate 71 mL/min (>60); Est Glom Filt Rate - Afr Amer 86 mL/min (>60); Estimated Creatinine Clearance 96.06 ml/min; Globulin 3.6 g/dL (2.2-4.2); Glucose 126 mg/dL (74-106); Potassium 3.5 mmol/L (3.5-5.1); Protein, Total 7.6 g/dL (6.4-8.2); Sodium Level 138 mmol/L (136-145)
[2024-02-10 21:32] LABS: Squamous Epithelial Cells - UA 0-5 SEEN /hpf (5-10); White Blood Cells 0-5 SEEN /hpf (0-5)
[2024-02-10 21:44] LABS: Absolute Lymphocyte Count 1.59 X10^3/uL (0.83-4.51); Absolute Neutrophil Count 3.2 X10^3/uL (2.0-7.7); Basophil# 0.05 X10^3/uL; Basophil% 0.9 % (0-1); Eosinophil# 0.06 X10^3/uL; Eosinophils% 1.1 % (0-5); Hematocrit 39.4 % (37-47); Hemoglobin 12.5 g/dL (12.0-15.0); Lymphocyte # 1.59 X10^3/ul (0.83-4.51); Lymphocyte % 29.6 % (19-41); Mean Corp Hgb Conc 31.7 g/dL (32-36); Mean Corpuscular Hgb 27.3 pg (27.0-32.0); Mean Platelet Vol. 10.8 fl (6.2-12.0); Monocyte# 0.51 X10^3/uL; Monocyte% 9.5 % (0-10); NRBC Flagged by Analyzer 0 % (0-5); Neutrophil # 3.15 X10^3/uL (2.7-7.7); Neutrophil % 58.7 % (47-70); Platelet Count 182 K/mm3 (150-450); RBC Distribution Width CV 12.8 % (11.6-14.6); RBC Distribution Width SD 39.7 fl (35.1-43.9); Red Blood Count 4.58 M/mm3 (4.2-5.4); White Blood Count 5.4 K/mm3 (4.4-11.0)
[2024-02-10 22:43] VITALS: BP 136/84; PULSE 74; RESP 18; TEMP 36.2; O2SAT 99
== END 2024-02-10 22:46 | disposition home or self-care (01) ==
PROVIDERS: Emergency Provider Emergency Medicine; Visit Provider Emergency Medicine
DX: R10.9 Unspecified abdominal pain (principal); F17.200 Nicotine dependence, unspecified, uncomplicated; J45.909 Unspecified asthma, uncomplicated
CPT/HCPCS: 36415; 74177; 80053; 81001; 84703; 85025; 99282; J7030; Q9967; A4216

== ENCOUNTER → 2024-05-02 | Outpatient (CLI) | payer MEDICAID, SELFPAY ==
[2024-05-02 10:22] LABS: Mucous, Urine 0 SEEN /hpf (<or=2+); Red Blood Cells-Urine 0 SEEN /hpf (0-5)
[2024-05-02 12:34] LABS: Color, Urine Yellow (Yellow); Glucose, Dipstick Normal (Normal); Ketone-Dipstick Negative (Negative); Leukocyte Esterase-Dipstick 500 /ul (Negative); Nitrite-Dipstick Negative (Negative); Occult Blood-Urine Negative /ul (Negative); Protein-Dipstick 15 mg/dl (Negative); Urine Bilirubin Dipstick Negative (Negative); Urine Clarity Sl. Cloudy (Clear); Urine Urobilinogen Normal (Normal); Urine pH 6.5 (5.0 - 8.0)
[2024-05-02 12:45] LABS: Bacteria 2+ /hpf (None Seen); Squamous Epithelial Cells - UA 5-10 SEEN /hpf (5-10); White Blood Cells 5-10 SEEN /hpf (0-5)
== END | disposition home or self-care (01) ==
LOC: LABSPEC 10:21
PROVIDERS: PCP Internal Medicine; Referring Provider Internal Medicine; Visit Provider Internal Medicine
DX: R30.0 Dysuria (principal)
CPT/HCPCS: 81001; 87086; 87088

== ENCOUNTER → 2024-05-04 | Outpatient (CLI) | payer MEDICAID, SELFPAY ==
[2024-05-04 08:36] LABS: Mucous, Urine 0 SEEN /hpf (<or=2+); Red Blood Cells-Urine 0 SEEN /hpf (0-5)
[2024-05-04 12:21] LABS: Color, Urine Yellow (Yellow); Glucose, Dipstick Normal (Normal); Ketone-Dipstick Negative (Negative); Leukocyte Esterase-Dipstick 500 /ul (Negative); Nitrite-Dipstick Negative (Negative); Occult Blood-Urine Negative /ul (Negative); Protein-Dipstick Negative (Negative); Specific Gravity, Urine 1.015 (1.002-1.030); Urine Bilirubin Dipstick Negative (Negative); Urine Clarity Cloudy (Clear); Urine Urobilinogen Normal (Normal)
[2024-05-04 12:32] LABS: Bacteria 3+ /hpf (None Seen); Squamous Epithelial Cells - UA 10-25 SEEN /hpf (5-10); White Blood Cells 0-5 SEEN /hpf (0-5); Yeast-Urine 1+ /hpf (None Seen)
== END | disposition home or self-care (01) ==
LOC: LABSPEC 08:33
PROVIDERS: PCP Internal Medicine; Referring Provider Internal Medicine; Visit Provider Internal Medicine
DX: R30.0 Dysuria (principal)
CPT/HCPCS: 81001; 87086; 87491; 87591

== ENCOUNTER 2024-11-07 00:04 | Emergency (ER) | payer MEDICAID, SELFPAY ==
[2024-11-07 00:06] VITALS: PULSE 76; RESP 15; TEMP 36.5; O2SAT 98; BMI 33.4
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
[2024-11-07] MEDS: 0.9% Normal Saline (1000mL) 1,000 ML 999 ML IV (00:41)
[2024-11-07 00:57] LABS: Absolute Lymphocyte Count 1.42 X10^3/uL (0.83-4.51); Absolute Neutrophil Count 3.3 X10^3/uL (2.0-7.7); Basophil# 0.06 X10^3/uL; Basophil% 1.1 % (0-1); Eosinophil# 0.09 X10^3/uL; Eosinophils% 1.7 % (0-5); Hematocrit 38.9 % (37-47); Hemoglobin 12.7 g/dL (12.0-15.0); Lymphocyte # 1.42 X10^3/ul (0.83-4.51); Lymphocyte % 26.3 % (19-41); Mean Corp Hgb Conc 32.6 g/dL (32-36); Mean Corpuscular Hgb 27.9 pg (27.0-32.0); Mean Corpuscular Volume 85.5 fL (81-99); Mean Platelet Vol. 10.5 fl (6.2-12.0); Monocyte% 9.3 % (0-10); NRBC Flagged by Analyzer 0 % (0-5); Neutrophil # 3.31 X10^3/uL (2.7-7.7); Neutrophil % 61.4 % (47-70); Platelet Count 178 K/mm3 (150-450); RBC Distribution Width CV 12.9 % (11.6-14.6); RBC Distribution Width SD 40.2 fl (35.1-43.9); Red Blood Count 4.55 M/mm3 (4.2-5.4); White Blood Count 5.4 K/mm3 (4.4-11.0)
[2024-11-07 01:06] LABS: Internal QC Validated? YES +Cl - CLEAR BKGD; Pregnancy, Serum, hCG Quali. NEGATIVE Negative
[2024-11-07 01:14] LABS: Anion Gap 11 (5-15); BUN 21 mg/dL (4-19); BUN/Creat Ratio 23.5 RATIO (10-20); Chloride 104 mmol/L (98-108); Creatinine, Serum 0.88 mg/dL (0.70-1.20); EST Glomerular Filtration Rate 93 (>60); Estimated Creatinine Clearance 110.87 ml/min (50-250); Glucose 90 mg/dL (70-99); Potassium 4.2 mmol/L (3.3-5.1); Sodium Level 138 mmol/L (133-145)
[2024-11-07 02:04] VITALS: BP 119/78; PULSE 77; RESP 16; O2SAT 96
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
[2024-11-07 02:50] VITALS: BP 119/78; PULSE 78; RESP 16; TEMP 36.5; O2SAT 98
== END 2024-11-07 02:55 | disposition home or self-care (01) ==
PROVIDERS: Emergency Provider Emergency Medicine; PCP Internal Medicine; Visit Provider Emergency Medicine
DX: S03.00XA Dislocation of jaw, unspecified side, initial encounter (principal); S10.0XXA Contusion of throat, initial encounter; T71.191A Asphyxiation due to mechanical threat to breathing due to other causes, accidental, initial encounter; F41.1 Generalized anxiety disorder; J45.909 Unspecified asthma, uncomplicated; Z87.891 Personal history of nicotine dependence
CPT/HCPCS: 70498; 80048; 84703; 85025; 96360; 96361; 99283; Q9967; A4216